=== PATIENT | female | born 1940 | race Caucasian/White ===

== ENCOUNTER → 2016-12-14 | Outpatient (CLI) | payer OTHER, MEDICARE | LOC: CIMAGING 10:02 | PROVIDERS: ATTEND Internal Medicine | DX: Z12.31 Encounter for screening mammogram for malignant neoplasm of breast (principal) | CPT/HCPCS: G0202 ==

== ENCOUNTER → 2017-03-07 | Outpatient (CLI) | payer OTHER, MEDICARE | LOC: FIMAGING 11:22 | PROVIDERS: ATTEND Physician Assistant | DX: Z13.820 Encounter for screening for osteoporosis (principal); M85.89 Other specified disorders of bone density and structure, multiple sites ==

== ENCOUNTER 2017-04-16 06:04 | Inpatient (IN) | payer OTHER, MEDICARE ==
--- NOTE | 2017-04-15 14:18 | GHP ---
[f rep st] PREOP HISTORY AND PHYSICAL DATE OF ADMISSION: 04/16/2017 DATE OF PLANNED PROCEDURE: 04/16/2017. ADMISSION DIAGNOSIS: Osteoarthritis, left shoulder. PLANNED PROCEDURE: A left total shoulder arthroplasty. HPI: The patient is a 76-year-old female with longstanding bilateral shoulder pain. She has undergo ne a right total shoulder arthroplasty done by Dr. Brock several years ago. Has done quite well. She is now ready to proceed with left total shoulder arthroplasty. She is quite limited in day-to-d ay activities and is having worsening pain on that left side. We got an MRI earlier to evaluate the rotator cuff which did show just a small partial tear on the rotator cuff. PRIOR MEDICAL HISTORY: Hypothyroidism, reflux. SURGICAL HISTORY: Carpal tunnel release, total shoulder replacement 2013, arthroscopic surgery on viki shoulders, skin cancer removal, thyroid surgery. MEDICATIONS: Omeprazole 40 mg, levothyroxine 50 mcg. ALLERGIES: JASON inhibitors and tramadol. SOCIAL HISTORY: She is . [place] here in town. Does not smoke. Reports occasional alcohol us e. REVIEW OF SYSTEMS: No shortness of breath or chest pain. Otherwise, review of systems is unremarkab le. PHYSICAL EXAM: VITAL SIGNS: She is 5 feet 2 inches tall, weighed 245 pounds. Blood pressure is 163 /93, heart rate 68, respiratory rate is 14 on room air. GENERAL APPEARANCE: Alert and oriented x3. HEENT: Normocephalic, atraumatic. Extraocular muscles intact. NECK: Supple. There is no lymphad enopathy. No JVD. CHEST: Clear to auscultation. CARDIOVASCULAR: Regular rate and rhythm. ABDOME N: Soft. Nondistended. No hepatosplenomegaly. EXTREMITIES: Left shoulder: There is some atrophy in the supraspinatus fossa prominence over the AC joint. She is tender over the long head of the bi ceps. Active range of motion. She only has about 80 degrees of forward flexion, 45 degrees of inter nal and external rotation. Both these motions are painful and she has quite a bit of crepitus. Rota tor cuff strength difficult to assess, but 4/5 for supraspinatus, infraspinatus with pain. Subscapul zofia 4+/5. IMAGING DATA: X-rays as well as MRIs are reviewed. Severe glenohumeral arthritis. MRI shows an int act rotator cuff with only a small tear in the supraspinatus. ASSESSMENT: Severe osteoarthritis, left shoulder. PLAN: The patient and I have decided to proceed with a total shoulder arthroplasty given the cuff ap pearance on the MRI. She should be a good candidate for a total shoulder. I did explain that if at the time of surgery, her cuff was in worse shape, we could convert it to a reverse shoulder. She und erstands this. Risks and benefits of the surgery including continued pain, weakness, limits in range of motion from 0 to about 140 degrees of forward flexion. Thus she does understand these limitations of the artificial joint. Plan on surgery Sunday at the hospital. /[id number]/MODL
[2017-04-16] MEDS ORDERED: ceFAZolin 2 GM/SWFI 2 GM/20 ML SYR IVP ONE (06:46)
[2017-04-16] MEDS ORDERED: LIDOCAINE 1% 2 ML INJ ID PRN (06:47)
[2017-04-16] MEDS ORDERED: LR 1,000 ML IV ONE (06:47)
--- NOTE | 2017-04-16 06:52 | PDANEPAE ---
ANE History of Present Illness L total shoulder arthroplasty ANE Past Medical History - Cardiovascular History Hx Hypertension: No Hx Arrhythmias: No Hx Chest Pain: No Hx Coronary Artery / Peripheral Vascular Disease: No Hx CHF / Valvular Disease: No Hx Palpitations: No - Pulmonary History Hx COPD: No Hx Asthma/Reactive Airway Disease: No Hx Recent Upper Respiratory Infection: No Hx Oxygen in Use at Home: No Hx Sleep Apnea: No Sleep Apnea Screening Result - Last Documented: Negative - Neurologic History Hx Cerebrovascular Accident: No Hx Seizures: No Hx Dementia: No Neurologic History Comment: hx of migraines. fx's at s1 and s2 on recent MRI - Endocrine History Hx Diabetes: No Endocrine History Comment: THYROID NODULE REMOVED. HYPOTHYROID. multinodular goiter - Renal History Hx Renal Disorders: No - Liver History Hx Hepatic Disorders: No - Neurological & Psychiatric Hx Hx Neurological and Psychiatric Disorders: No - Cancer History Hx Cancer: Yes Cancer History Comment: SKIN CA R ARM SQUAMOUS - Congenital Disorder History Hx Congenital Disorders: No - GI History Hx Gastrointestinal Disorders: Yes Gastrointestinal History Comment: GERD. HIATAL HERNIA - Other Health History Other Health History: wears glasses - Chronic Pain History Chronic Pain: Yes (left shoulder) - Surgical History Prior Surgeries: 01/27/14 right shoulder revision with Vinod. 2011 right total shoulder with Vinod. THYROID SURG. TUBAL LIGATION AND APPENDECTOMY. SMALL TOE L. L SHOULDER ARTHROSCOPY 1997. L BREAST CYST ANE Review of Systems Review of systems is: negative Review of Systems: - Exercise capacity METS (RN): 4 METS ANE Patient History - Allergies Allergies/Adverse Reactions: tramadol Allergy (Verified 04/04/17 10:20) LETHARGY, NAUSEA, VOMITING - Home Medications Home medications: home medication list seen and reviewed Home Medications: Multivitamins W-Minerals [Thera M Plus Tablet] 1 each PO DAILY 01/13/14 [Last Taken 01/13/14] Cholecalciferol Vit D3 [Vitamin D3 (*)] 1,000 units PO DAILY 04/02/17 [Last Taken Unknown] Levothyroxine [Synthroid 50 mcg (*)] 50 mcg PO DAILY06 04/02/17 [Last Taken Unknown] Multivitamins [Multivitamin (*)] 1 each PO DAILY 04/02/17 [Last Taken Unknown] Omeprazole 40 mg PO DAILY 04/02/17 [Last Taken Unknown] - NPO status NPO Status: no food or drink >8 hours - Anes Hx Hx Anesthesia Complications (with details): R sided nerve deficit after ISB - Smoking Hx Smoking Status: Never smoked - Family Anes Hx Family Anes Hx: none Family Hx Anesthesia Complications: none ANE Labs/Vital Signs - Vital Signs Height: 155 cm Weight: 69.3 kg ANE Physical Exam - Airway Neck exam: FROM Mallampati Score: Class 2 Mouth exam: normal dental/mouth exam - Pulmonary Pulmonary: no respiratory distress - Cardiovascular Cardiovascular: regular rate and rhythym - ASA Status ASA Status: II ANE Anesthesia Plan Anesthesia Plan: GA w LMA Regional Anesthesia: single shot NB, interscalene BP NB
[2017-04-16] MEDS ORDERED: POLYMYXIN B SULFATE 500,000 UNIT/10 ML SYR IRR ONE (06:56)
[2017-04-16] MEDS ORDERED: BACITRACIN 50,000 UNITS/10 ML SYR IRR ONE (06:56)
--- NOTE | 2017-04-16 06:56 | PDHPUP ---
History & Physical Update H&P update statement: This history and physical update is based on an assessment of the patient which was completed after admission or registration (within 24 hours), but prior to the surgery/procedure. H&P update: H&P reviewed & patient examined, no change in patient's condition since H&P completed
[2017-04-16] MEDS ORDERED: MIDAZOLAM 2 MG/2 ML VIAL ONE (07:04)
[2017-04-16] MEDS ORDERED: MIDAZOLAM 2 MG/2 ML VIAL IVP ONE (07:05)
[2017-04-16] MEDS ORDERED: ROPIVACAINE HCL 150 MG/30 ML INJ ONE (07:12)
[2017-04-16] MEDS ORDERED: ONDANSETRON 4 MG/2 ML VIAL ONE (07:14)
[2017-04-16] MEDS ORDERED: DEXAMETHASONE 4 MG/ML VIAL ONE (07:14)
[2017-04-16] MEDS ORDERED: LIDOCAINE 2% 100 MG/5 ML SYR ONE (07:14)
[2017-04-16] MEDS ORDERED: PROPOFOL 200 MG/20 ML VIAL ONE (07:14)
[2017-04-16] MEDS ORDERED: fentaNYL 100 MCG/2 ML INJ ONE (07:14)
[2017-04-16] MEDS: BUPIVACAINE/EPI 0.5% 30 ML SDV ONE ×2 (07:57→09:03)
[2017-04-16] MEDS ORDERED: HYDROCODONE/APAP 5/325 TAB PO PRN (08:25)
[2017-04-16] MEDS ORDERED: HYDROmorphONE/DILAUDID 1 MG/ML INJ IVP PRN (08:25)
[2017-04-16] MEDS ORDERED: DEXAMETHASONE 4 MG/ML VIAL IVP PRN (08:25)
[2017-04-16] MEDS ORDERED: NALOXONE HCL 0.4 MG/ML INJ IVP PRN (08:25)
[2017-04-16] MEDS ORDERED: ONDANSETRON 4 MG/2 ML VIAL IVP PRN ×2 (08:25→09:30)
[2017-04-16] MEDS ORDERED: MEPERIDINE 25 MG/ML SYR IVP PRN (08:25)
[2017-04-16] MEDS ORDERED: fentaNYL 100 MCG/2 ML INJ IVP PRN (08:25)
[2017-04-16] MEDS ORDERED: PROMETHAZINE HCL 25 MG/ML INJ IVP PRN (08:25)
[2017-04-16] MEDS ORDERED: ACETAMINOPHEN 500 MG TAB PO PRN (08:25)
[2017-04-16] MEDS ORDERED: OXYCODONE/APAP 5/325 TAB PO PRN ×2 (08:25→09:30)
--- NOTE | 2017-04-16 08:25 | POSTANESTH ---
Post Anesthetic Evaluation Cardiovascular Status: Normal, Stable, Similar to Pre-Op Cond Respiratory Status: Normal, Stable, Similar to Pre-op Cond. Level of Consciousness/Mental Status: Can Participate in Eval, Mildly Sleepy, Arousable Pain Control: Adequate, Prn Tx Ordered Nausea/Vomiting Control: Adequate, Prn Tx Ordered Complications Possibly Related to Anesthesia: None Noted
[2017-04-16] MEDS ORDERED: KETOROLAC 15 MG/1 ML SDV IVP ONE (09:30)
[2017-04-16] MEDS ORDERED: D5W 1/2 NS W/ 20 KCl/L 1,000 ML IV SCH (09:30)
[2017-04-16] MEDS ORDERED: TEMAZEPAM 15 MG CAP PO PRN (09:30)
--- NOTE | 2017-04-16 09:34 | POSTOPPROG ---
Post Op Note Date of Operation: 04/16/17 Surgeon: Rajan Fitzgerald Machine Cementer: Rod Nicolas Anesthesiologist: Avtar Anesthesia: GET(General Endotracheal) Pre-op Diagnosis: OA lt shoulder Post-op Diagnosis: same Procedure: LT TSA Findings: Severe OA Inf/Abcess present in the surg proc area at time of surgery?: No EBL: 50-100 Complications: none
[2017-04-16] MEDS ORDERED: KETOROLAC 15 MG/1 ML SDV ONE (10:01)
--- NOTE | 2017-04-16 10:28 | GOP ---
[f rep st] OPERATIVE REPORT DATE OF OPERATION: 04/16/2017 SURGEON: Rajan Fitzgerald MD OPERATOR: Gene Nicolas, FIELD NURSE, [facility]. ANESTHESIA: Interscalene block with general. ANESTHESIOLOGIST: Silviano Nova MD PREOPERATIVE DIAGNOSIS: Osteoarthritis left shoulder. POSTOPERATIVE DIAGNOSIS: Osteoarthritis left shoulder. PROCEDURE PERFORMED: Left total shoulder arthroplasty. FINDINGS: ESTIMATED BLOOD LOSS: 100 mL. INDICATIONS: The patient is a 76-year-old female with longstanding worsening left shoulder pain. Sh leticia has undergone a total shoulder arthroplasty on the right. Decision was made to proceed with total shoulder arthroplasty on the left. DESCRIPTION OF PROCEDURE: After appropriate informed consent was obtained, patient taken to the oper ating room, placed supine on the operating table. Time-out was performed. Patient was identified, c orrect site was identified, matched with radiographs available in the room. She received 2 g of Ance f preoperatively. Dr. Nova administered an interscalene block, followed by general endotracheal tube anesthesia. Patient was then positioned in beach chair position with all bony prominences well padded. Left upper extremity was prepped and draped in usual sterile fashion. Using a deltopectoral approach, I made a skin incision. Bleeding was controlled with electrocautery. The cephalic vein wa s identified and retracted toward the medial side. I placed a retractor under the deltoid on the lat eral side and the deltopectoral fascia was incised. The circumflex humeral vessels were identified a nd coagulated with the Aquamantys device. The biceps tendon had been previously torn and was then te nodesed to the proximal end of the humerus. Using my electrocautery, I made my subscapularis tenotomy leaving a cuff of tissue for later repair on the lesser tuberosity. I then released the capsule bot h anteriorly inferiorly being careful to protect the axillary nerve throughout the entirety of the ca se. I released capsule from the inferior aspect of the humeral head all the way to the 6 o'clock pos ition, removed inferior osteophytes and then, using oscillating saw, freehand technique was used to m frank our head and neck cut. This was passed off and measured to a size 43. We then placed a Fukuda ret ractor and retracted the humeral head out of the way. I removed remaining capsule both anteriorly an d posteriorly for better exposure of the glenoid. This was between a medium and a large glenoid compo nent but; however, given the small humeral size, I opted for the smaller medial glenoid so there woul d not be a mismatch. I prepared the glenoid by placing our center pin and then reaming, removing nicola ining cartilage from the glenoid. We then drilled our PEG holes. On the back table, cement was mixed. We cemented our glenoid component in place. Excess cement was removed. I irrigated the wound. We then turned our attention to the humerus. I externally rotated and dislocated it again and, using ou r canal finding device, entered the humeral canal. Then, we broached up to a size 8 with good fill a nd good tight fit. We checked our version. When I was satisfied with that and the position, we place d our final implant in place. Tapped it in place. We then trialed heads. The 43 x [address] stability without overstuffing the joint. We tapped our final head into place. I irrigated the w ound a final time. Prior to placing the stem, we passed 2 FiberWire stitches for later repair of the subscapularis which was repaired in a [id number] fashion. She still had good external rotation to 60 degrees after the subscapularis repair without undue tension on our repair. I tagged the deltoid and then closed the superficial layers with 2-0 Vicryl and 3-0 Monocryl stitch in a subcuticular fas hion. Sterile dressing was applied. Sling was applied. Patient was awakened from anesthesia, taken to recovery room in satisfactory condition. There were no immediate intraoperative complications. Rod Nicolas's assistance was required throughout the entire case. IMPLANTS USED: Arthrex size 8 universe 2 stem, 43 x 17 head and a medium size glenoid cemented and t his stem was press fit. COMPLICATIONS: None. DRAINS: None. /[id number]/MODL
[2017-04-16] MEDS: ceFAZolin 2 GM/SWFI 2 GM/20 ML SYR IVP SCH ×2 (13:32→21:21)
--- NOTE | 2017-04-16 16:05 | ASMTCMCOM ---
CM Note CM Note Notes: Pt is s/p L TSA. She has had shoulder surgeries in the past and said she will not need home care. She has a and grandson at home to assist her. She also has other family who will bring food and has hired a visiting housekeeper until she is able to resume her normal activities. PT/OT are pending, let her know CM will follow up if other recommendations are made. Date Signed: 04/16/2017 04:04 PM Electronically Signed By:CRISTIAN Ventura
[2017-04-16] MEDS: DOCUSATE SODIUM 100 MG CAP PO SCH (21:20)
[2017-04-16] MEDS: HYDROCODONE/APAP 5/325 TAB PO PRN ×2 (22:47→23:28)
[2017-04-17] MEDS ORDERED: ACETAMINOPHEN 325 MG TAB PO PRN (00:16)
[2017-04-17 03:31] VITALS: RESP 16
[2017-04-17] MEDS: HYDROCODONE/APAP 5/325 TAB PO PRN ×2 (03:38→08:58)
[2017-04-17 08:00] VITALS: BP 104/76; PULSE 64; TEMP 99.3; O2SAT 98
--- NOTE | 2017-04-17 08:29 | SOAPPROG ---
SOAP Progress Note Assessment/Plan: Assessment: POD#1 LT TSA Plan: 04/17/17 08:28 DC home after OT No ER >45 x 6 weeks all other motions ok may remove dressing Sunday - shower F/U [place] 10 days Subjective: nerve block worn off Lamar working for pain Objective: dressing c/d/i moving hand/fingers well 2+ radial pulse Vital Signs Temp Pulse Resp BP Pulse Ox 37.4 C 64 16 104/76 98 04/17/17 07:58 04/17/17 07:58 04/17/17 07:58 04/17/17 07:58 04/17/17 07:58 04/16/17 04/17/17 04/18/17 05:59 05:59 05:59 Intake Total 1750 Output Total 1425 Balance 325 ICD10 Worksheet Patient Problems: Problems Problem Status Onset Osteoarthritis of shoulder Acute
[2017-04-17] MEDS: DOCUSATE SODIUM 100 MG CAP PO SCH (08:58)
== END 2017-04-17 11:14 | disposition home or self-care (01) | DRG 483 ==
LOC: F3N 06:04
PROVIDERS: ADMIT Orthopaedic Surgery; ATTEND Orthopaedic Surgery
PROC: 0RRK00Z Replacement of Left Shoulder Joint with Reverse Ball and Socket Synthetic Substitute, Open Approach (ICD-10-PCS; principal; 2017-04-16 07:15)
DX: M19.012 Primary osteoarthritis, left shoulder (principal); M25.611 Stiffness of right shoulder, not elsewhere classified; E03.9 Hypothyroidism, unspecified; K21.9 Gastro-esophageal reflux disease without esophagitis; K44.9 Diaphragmatic hernia without obstruction or gangrene
CPT/HCPCS: 97165-GO; C1713; G8987-GO-CJ; G8988-GO-CJ; G8989-GO-CJ; J0690; J1100; J1885; J2001; J2250; J2270; J2405; J2704; J2795; J3010

== ENCOUNTER → 2017-12-17 | Outpatient (CLI) | payer OTHER, MEDICARE | LOC: CIMAGING 10:27 | PROVIDERS: ATTEND Internal Medicine | DX: Z12.31 Encounter for screening mammogram for malignant neoplasm of breast (principal) ==